=== PATIENT | female | born 1950 | race Caucasian/White ===

== ENCOUNTER → 2017-03-14 | Outpatient (CLI) | payer MEDICARE, MEDICAID, OTHER ==
--- NOTE | 2017-03-14 15:17 | MR ---
EXAMINATION: MRI pelvis without contrast HISTORY: Pain COMPARISON: CT pelvis dated 07/08/2009 TECHNIQUE: Multiplanar and multisequence images obtained through the pelvis without contrast. FINDINGS: There is no abnormal bone marrow signal. The hips appear symmetric bilaterally with grossl y preserved joint spaces. No joint effusion. No subchondral changes. The SI joints are symmetric. Mi ld degenerative disc disease noted within the lower lumbar spine. Increased T2 signal areas are note d within the upper gluteal regions within the subcutaneous tissues, likely unchanged from the prior CT. No abnormal intrapelvic findings. No free fluid. The urinary bladder is normal. IMPRESSION: 1. No acute findings demonstrated. 2. Mild to moderate degenerative changes noted within the lumbar spine.
== END ==
LOC: MW.MRI 11:30
PROVIDERS: ATTEND Family Medicine
DX: R10.30 Lower abdominal pain, unspecified (principal); M47.816 Spondylosis without myelopathy or radiculopathy, lumbar region
CPT/HCPCS: 72195; 72195-26

== ENCOUNTER 2019-03-10 18:34 | Emergency (ER) | payer MEDICARE, MEDICAID, OTHER ==
--- NOTE | 2019-03-10 18:58 | EDM.PDOC ---
ED HPI GENERAL MEDICAL PROBLEM - General Chief Complaint: Lower Extremity Injury/Pain Stated Complaint: FELL AND HIT KNEE Time Seen by Provider: 03/10/19 18:36 Source of Information: Reports: Patient History Limitations: Reports: No Limitations - History of Present Illness INITIAL COMMENTS - FREE TEXT/NARRATIVE: HISTORY AND PHYSICAL: History of present illness: Patient is a 68-year-old female presents to the ED today for left knee pain after she had fallen in the kitchen when she saw a snake, under her fridge. Patient states she landed directly on her left knee and did not hit her head or lose consciousness. Patient states since she had fallen earlier today, she has not been able to put weight on the leg due to pain. She states she has not been able to bend the knee due to pain. Patient denies any other symptoms at this time. Patient denies fever, chills, chest pain, shortness of breath, or cough. Denies headache, neck stiff ness, change in vision, syncope, or near syncope. Denies nausea, vomiting, abdominal pain, diarrhea, constipation, or dysuria. Has not noted any blood in urine or stool. Patient has been eating and drinking appropriately. Patient has a history of COPD and a prior stroke that has affected the left side of her body. Review of systems: As per history of present illness and below otherwise all systems reviewed and negative. Past medical history: As per history of present illness and as reviewed below otherwise noncontributory. Surgical history: As per history of present illness and as reviewed below otherwise noncontributory. Social history: See social history for further information Family history: As per history of present illness and as reviewed below otherwise noncontributory. Physical exam: General: Patient is alert, oriented, and in no acute distress. Patient sitting comfortably on exam table. HEENT: Atraumatic, normocephalic, pupils equal and reactive bilaterally, negative for conjunctival pallor or scleral icterus, mucous membranes moist, TMs normal bilaterally, throat clear, neck supple, nontender, trachea midline. No drooling or trismus noted. No meningeal signs. No hot potato voice noted. Slight drooping of left side of face per baseline. Lungs: Clear to auscultation, breath sounds equal bilaterally, chest nontender. Heart: S1S2, regular rate and rhythm without overt murmur Abdomen: Soft, nondistended, nontender. Negative for masses or hepatosplenomegaly. Negative for costovertebral tenderness. Pelvis: Stable nontender. Genitourinary: Deferred. Rectal: Deferred. Skin: Intact, warm, dry. No lesions or rashes noted. Extremities:Negative for cords or calf pain. Neurovascular unremarkable. Unable to assess range of motion of left knee and due to pain. Generalized pain to palpation of the left knee. No obvious deformities, step-offs, or crepitus to palpation of the knee. Dorsalis pedis and posterior tibial pulses are grossly intact bilaterally. Left side arm is spastic and patient unable to utilize this side (due to past stroke) Capillary refill less than 2 seconds. Neuro: Awake, alert, oriented. Cranial nerves II through XII unremarkable. Cerebellum unremarkable. Motor and sensory unremarkable throughout. Exam nonfocal. Notes: Dr. Carpio verbally involved in patient care. Patient's first troponin had come back positive, however, we are having issues with not having transportation available at this time. Patient remains asymptomatic, denying any symptoms other than left knee pain, and will continue to monitor patient. Patient does take a full dose aspirin daily and states she did take her dose not long before arrival to the ED. Second troponin has increased from 0.198 to 0.387 after 2 hours of draw times. Patient continues to remain chest pain free. Therefore, the availability to transfer via EMS is arranged. There remains issues with transportation options at this time, however, EMS has called and said they are working on rearranging for a team shortly. Will continue to monitor patient. Repeat EKG performed. Patient Voices understanding and is agreeable to plan of care. Denies any further questions or concerns at this time. Patient transferred via EMS to [facility] to Dr. Maritn. 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 Transfer to [facility] to Dr. Martin. Definitive disposition and diagnosis as appropriate pending reevaluation and review of above. left knee Pain Score (Numeric/FACES): 10 - Related Data Allergies Allergy/AdvReac Type Severity Reaction Status Date / Time amoxicillin trihydrate Allergy Anaphylactic Verified 09/18/15 08:57 [From Augmentin] Shock hydrocortisone Allergy Cannot Verified 09/18/15 08:57 [From Cortizone-10] Remember Penicillins Allergy Cannot Verified 09/18/15 08:57 Remember potassium clavulanate Allergy Anaphylactic Verified 09/18/15 08:57 [From Augmentin] Shock prochlorperazine edisylate Allergy Cannot Verified 09/18/15 08:57 [From Compazine] Remember prochlorperazine maleate Allergy Cannot Verified 09/18/15 08:57 [From Compazine] Remember sumatriptan [From Imitrex] Allergy Cannot Verified 09/18/15 08:57 Remember sumatriptan succinate Allergy Cannot Verified 09/18/15 08:57 [From Imitrex] Remember Home Meds: Home Meds Hydrocodone/Acetaminophen [Hydrocodone-Acetaminophen 5-325] 1 each PO ASDIRECTED PRN 02/20/14 [History] Acetaminophen [Tylenol Extra Strength] 2 tab PO ASDIRECTED PRN 01/01/15 [History ] Aspirin [Ecotrin] 325 mg PO DAILY 11/06/15 [History] Citalopram [Celexa] 20 mg PO DAILY 11/06/15 [History] Divalproex Sodium [Divalproex Sodium ER] 500 mg PO BEDTIME 11/06/15 [History] Docusate Sodium [Colace] 100 mg PO BID PRN 11/06/15 [History] Pantoprazole [ProTONIX] 40 mg PO ACBREAKFAST 11/06/15 [History] Tiotropium [Spiriva HandiHaler] 18 mcg INH DAILY 11/06/15 [History] atorvaSTATin [Lipitor] 80 mg PO DAILY 11/06/15 [History] traMADol [Ultram] 50 mg PO Q8H PRN 11/06/15 [History] Furosemide [Lasix] 40 mg PO 03/10/19 [History] Linaclotide [Linzess] 125 mcg PO 03/10/19 [History] Vitamin B Complex 03/10/19 [History] Zolpidem [Ambien] 5 mg PO BEDTIME PRN 03/10/19 [History] traZODone HCl [Trazodone HCl] 50 mg PO ASDIRECTED 03/10/19 [History] Past Medical History HEENT History: Reports: Impaired Vision Other HEENT History: wears glasses, poor vision in left side since stroke. : APPEARS TO HAVE DIMINISHED PERIPHERAL VISION ON THE LEFT. HOWEVER, PATIENT AND SPOUSE BOTH REPORT THIS IS MUCH IMPROVED FROM THE INITIAL ONE SET DATE. 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 Neurological History: Reports: CVA Other Neuro History: left sided stroke one month ago. 11/19/15: MIGRAINE HEADACHES. Psychiatric History: Reports: Depression Endocrine/Metabolic History: Reports: None Hematologic History: Reports: None Oncologic (Cancer) History: Reports: None Dermatologic History: Reports: None - Infectious Disease History Infectious Disease History: Reports: Chicken Pox - Past Surgical History GI Surgical History: Reports: Appendectomy Female Surgical History: Reports: Hysterectomy Musculoskeletal Surgical History: Reports: Carpal Tunnel Social & Family History - Family History Family Medical History: Noncontributory Cardiac: Reports: Hypertension, MA Respiratory: Reports: COPD Musculoskeletal: Reports: Arthritis Neurological: Reports: CVA, TIA Endocrine/Metabolic: Reports: Diabetes, Type I Oncologic: Reports: Lung - Tobacco Use Smoking Status *Q: Never Smoker - Recreational Drug Use Recreational Drug Use: No Review of Systems - Review of Systems Review Of Systems: ROS reveals no pertinent complaints other than HPI. ED EXAM, GENERAL - Physical Exam Exam: See Below (See dictation) Course - Vital Signs Last Recorded V/S: Last Vital Signs Temp 36.7 C 03/10/19 18:38 Pulse 82 03/10/19 21:26 Resp 18 03/10/19 21:26 BP 125/52 L 03/10/19 21:26 Pulse Ox 95 03/10/19 21:26 - Orders/Labs/Meds Orders: Active Orders 24 hr Category Date Time Status Cardiac Monitoring [RC] . DIRECTED Care 03/10/19 19:40 Active EKG Documentation Completion [RC] STAT Care 03/10/19 18:46 Active RT Aerosol Therapy [RC] ASDIRECTED Care 03/10/19 19:01 Active UA RFX HENOK AND CULT IF INDIC [URIN] Stat Lab 03/10/19 18:46 Ordered Sodium Chloride 0.9% [Saline Flush] Med 03/10/19 19:38 Active 10 ml FLUSH ASDIRECTED PRN Sodium Chloride 0.9% [Saline Flush] Med 03/10/19 19:38 Active 2.5 ml FLUSH ASDIRECTED PRN Saline Lock Insert [OM.PC] Stat Oth 03/10/19 19:38 Ordered Medication Orders Sodium Chloride (Saline Flush) 10 ml FLUSH ASDIRECTED PRN PRN Reason: Keep Vein Open Last Admin: 03/10/19 20:37 Dose: 10 ml Sodium Chloride (Saline Flush) 2.5 ml FLUSH ASDIRECTED PRN PRN Reason: Keep Vein Open Last Admin: 03/10/19 20:37 Dose: 2.5 ml Labs: Laboratory Tests 03/10/19 03/10/19 03/10/19 Range/Units 18:53 18:53 18:53 WBC 12.18 H (4.0-11.0) K/uL RBC 4.59 (4.30-5.90) M/uL Hgb 13.9 (12.0-16.0) g/dL Hct 42.2 (36.0-46.0) % MCV 91.9 (80.0-98.0) fL MCH 30.3 (27.0-32.0) pg MCHC 32.9 (31.0-37.0) g/dL RDW Std Deviation 53.1 (28.0-62.0) fl RDW Coeff of Nagi 16 H (11.0-15.0) % Plt Count 221 (150-400) K/uL MPV 11.60 (7.40-12.00) fL Neut % (Auto) 74.0 (48.0-80.0) % Lymph % (Auto) 19.3 (16.0-40.0) % [place] % (Auto) 5.7 (0.0-15.0) % Eos % (Auto) 0.8 (0.0-7.0) % Baso % (Auto) 0.2 (0.0-1.5) % Neut # (Auto) 9.0 H (1.4-5.7) K/uL Lymph # (Auto) 2.4 (0.6-2.4) K/uL [place] # (Auto) 0.7 (0.0-0.8) K/uL Eos # (Auto) 0.1 (0.0-0.7) K/uL Baso # (Auto) 0.0 (0.0-0.1) K/uL Nucleated RBC % 0.0 /100WBC Nucleated RBCs # 0 K/uL Sodium 142 (136-145) mmol/L Potassium 4.0 (3.5-5.1) mmol/L Chloride 103 (98-107) mmol/L Carbon Dioxide 29.6 (21.0-32.0) mmol/L BUN 15 (7.0-18.0) mg/dL Creatinine 0.9 (0.6-1.0) mg/dL Est Cr Clr Drug Dosing 45.77 mL/min Estimated GFR (MDRD) > 60.0 ml/min Glucose 108 H (74-106) mg/dL Calcium 9.1 (8.5-10.1) mg/dL Total Bilirubin 0.4 (0.2-1.0) mg/dL AST 22 (15-37) IU/L ALT 23 (14-63) IU/L Alkaline Phosphatase 138 H (46-116) U/L Creatine Kinase 168 (26-308) U/L Troponin I 0.198 H* (0.000-0.056) ng/mL Total Protein 7.5 (6.4-8.2) g/dL Albumin 3.9 (3.4-5.0) g/dL Globulin 3.6 (2.6-4.0) g/dL Albumin/Globulin Ratio 1.1 (0.9-1.6) 03/10/19 Range/Units 20:56 WBC (4.0-11.0) K/uL RBC (4.30-5.90) M/uL Hgb (12.0-16.0) g/dL Hct (36.0-46.0) % MCV (80.0-98.0) fL MCH (27.0-32.0) pg MCHC (31.0-37.0) g/dL RDW Std Deviation (28.0-62.0) fl RDW Coeff of Nagi (11.0-15.0) % Plt Count (150-400) K/uL MPV (7.40-12.00) fL Neut % (Auto) (48.0-80.0) % Lymph % (Auto) (16.0-40.0) % [place] % (Auto) (0.0-15.0) % Eos % (Auto) (0.0-7.0) % Baso % (Auto) (0.0-1.5) % Neut # (Auto) (1.4-5.7) K/uL Lymph # (Auto) (0.6-2.4) K/uL [place] # (Auto) (0.0-0.8) K/uL Eos # (Auto) (0.0-0.7) K/uL Baso # (Auto) (0.0-0.1) K/uL Nucleated RBC % /100WBC Nucleated RBCs # K/uL Sodium (136-145) mmol/L Potassium (3.5-5.1) mmol/L Chloride (98-107) mmol/L Carbon Dioxide (21.0-32.0) mmol/L BUN (7.0-18.0) mg/dL Creatinine (0.6-1.0) mg/dL Est Cr Clr Drug Dosing mL/min Estimated GFR (MDRD) ml/min Glucose (74-106) mg/dL Calcium (8.5-10.1) mg/dL Total Bilirubin (0.2-1.0) mg/dL AST (15-37) IU/L ALT (14-63) IU/L Alkaline Phosphatase (46-116) U/L Creatine Kinase (26-308) U/L Troponin I 0.387 H* (0.000-0.056) ng/mL Total Protein (6.4-8.2) g/dL Albumin (3.4-5.0) g/dL Globulin (2.6-4.0) g/dL Albumin/Globulin Ratio (0.9-1.6) Meds: Medications Generic Name Dose Route Start Last Admin Trade Name Freq PRN Reason Stop Dose Admin Sodium Chloride 10 ml 03/10/19 19:38 03/10/19 20:37 Saline Flush FLUSH 10 ml ASDIRECTED PRN Administration Keep Vein Open Sodium Chloride 2.5 ml 03/10/19 19:38 03/10/19 20:37 Saline Flush FLUSH 2.5 ml ASDIRECTED PRN Administration Keep Vein Open Discontinued Medications Generic Name Dose Route Start Last Admin Trade Name Freq PRN Reason Stop Dose Admin Albuterol/Ipratropium 3 ml 03/10/19 19:01 03/10/19 19:11 Duoneb 3.0-0.5 Mg/3 Ml NEB 03/10/19 19:02 3 ml ONETIME ONE Administration Morphine Sulfate 2 mg 03/10/19 20:25 03/10/19 20:37 Morphine IVPUSH 03/10/19 20:26 2 mg ONETIME ONE Administration Nitroglycerin 0.5 gm 03/10/19 21:45 Nitro-Bid 2% TOP 03/10/19 21:46 ONETIME ONE Departure - Departure Time of Disposition: 21:58 Disposition: DC/Tfer to Acute Hospital 02 Condition: Fair Clinical Impression: NSTEMI (non-ST elevated myocardial infarction) Knee injury Qualifiers: Encounter type: initial encounter Laterality: left Qualified Code(s): S89.92XA - Unspecified injury of left lower leg, initial encounter - Discharge Information Referrals: Jenny Summers DO [Primary Care Provider] - - My Orders Last 24 Hours: My Active Orders 03/10/19 18:46 EKG Documentation Completion [RC] STAT UA RFX HENOK AND CULT IF INDIC [URIN] Stat 03/10/19 19:01 RT Aerosol Therapy [RC] ASDIRECTED 03/10/19 19:38 Sodium Chloride 0.9% [Saline Flush] 10 ml FLUSH ASDIRECTED PRN Sodium Chloride 0.9% [Saline Flush] 2.5 ml FLUSH ASDIRECTED PRN Saline Lock Insert [OM.PC] Stat 03/10/19 19:40 Cardiac Monitoring [RC] . DIRECTED - Assessment/Plan Last 24 Hours: My Active Orders 03/10/19 18:46 EKG Documentation Completion [RC] STAT UA RFX HENOK AND CULT IF INDIC [URIN] Stat 03/10/19 19:01 RT Aerosol Therapy [RC] ASDIRECTED 03/10/19 19:38 Sodium Chloride 0.9% [Saline Flush] 10 ml FLUSH ASDIRECTED PRN Sodium Chloride 0.9% [Saline Flush] 2.5 ml FLUSH ASDIRECTED PRN Saline Lock Insert [OM.PC] Stat 03/10/19 19:40 Cardiac Monitoring [RC] . DIRECTED
[2019-03-10] MEDS ORDERED: Albuterol/Ipratropium 3.0-0.5 MG/3 ML Neb Soln NEB ONE (19:01)
[2019-03-10 19:25] LABS: CHLORIDE,CL 103 mmol/L (98-107); SODIUM,NA 142 mmol/L (136-145)
[2019-03-10] MEDS ORDERED: Sodium Chloride 0.9% 2.5 ML Syringe FLUSH PRN (19:38)
[2019-03-10] MEDS ORDERED: Sodium Chloride 0.9% 10 ML Syringe FLUSH PRN (19:38)
[2019-03-10] MEDS ORDERED: Morphine 2 MG/ML Syringe IVPUSH ONE ×2 (20:25→23:28)
--- NOTE | 2019-03-10 20:28 | CR ---
INDICATION: Hypoxia. COMPARISON: 11/06/2015 FINDINGS: An erect single view of the chest was obtained at 1931 hours. The lungs remain clear despite shallow inspiration. No focal or diffuse infiltrates are present. There is new mild cardiomegaly. This is partially the result of shallow inspiration. The mediastinum is otherwise normal in appearance. Again seen is a metallic plate from anterior cervical fusion. IMPRESSION: Shallow inspiration, but the chest appears to be clear. New mild cardiomegaly, partially the result of shallow inspiration. Dictated by Antonio Castillo MD @ Mar 10 2019 8:25PM Signed by Dr. Antonio Castillo @ Mar 10 2019 8:27PM
--- NOTE | 2019-03-10 20:28 | CR ---
Indication: Fall Technique: Three views of the left knee Comparison: None available Findings/Impression: Bones: Alignment is normal. No fractures or bone lesions. Joint spaces: Preserved. A small suprapatellar effusion. Soft tissues: Unremarkable. Dictated by Massimo Greer MD @ 03/10/2019 8:24:23 PM Dictated by: Massimo Greer MD @ 03/10/2019 20:26:23 (Electronically Signed)
--- NOTE | 2019-03-10 20:47 | CT ---
INDICATION: Fall. Prior stroke. TECHNIQUE: Noncontrast CT of the brain was performed with images acquired from skull base to vertex. COMPARISON: 09/18/2015. FINDINGS: Right frontal temporal encephalomalacia related to prior right middle cerebral artery territory infarct. There is no acute intracranial hemorrhage. There is ex vacuo dilatation on the right lateral ventricle. Ventricles are otherwise normal size and morphology. No mass effect or midline shift is present. The left hemispheric curtis-white matter differentiation is normal. The visualized portions of the orbits are normal. The visualized portions of the mastoids are normal. The visualized portions of the paranasal sinuses are normal. No fractures are identified. There is atherosclerotic calcification of the carotid siphons. IMPRESSION: No acute intracranial abnormality. Please note that all CT scans at this facility use dose modulation, iterative reconstruction, and/or weight-based dosing when appropriate to reduce radiation dose to as low as reasonably achievable. Dictated by Charles Kc MD @ Mar 10 2019 10:51PM Signed by Dr. Charles Kc @ Mar 10 2019 10:55PM
[2019-03-10] MEDS ORDERED: Nitroglycerin 2% Oint 1 GM UD Packet TOP ONE (21:45)
[2019-03-10] MEDS ORDERED: Morphine 2 MG/ML Syringe ONE (23:29)
[2019-03-10 23:41] VITALS: BP 129/74
== END 2019-03-10 23:41 ==
LOC: MW.ED 18:34
DX: I21.4 Non-ST elevation (NSTEMI) myocardial infarction (principal); S89.92XA Unspecified injury of left lower leg, initial encounter; I69.334 Monoplegia of upper limb following cerebral infarction affecting left non-dominant side; Z90.49 Acquired absence of other specified parts of digestive tract; Z90.710 Acquired absence of both cervix and uterus; Z88.0 Allergy status to penicillin; Z88.1 Allergy status to other antibiotic agents; Z79.82 Long term (current) use of aspirin; Z79.899 Other long term (current) drug therapy; W19.XXXA Unspecified fall, initial encounter
CPT/HCPCS: 36415; 70450; 71045; 73562; 80053; 81003; 82550; 84484; 85025; 93005; 94640; 96374; 96376; 99285; A9270; J2270; J7620-GY

== ENCOUNTER 2020-08-14 13:00 | Emergency (ER) | payer MEDICARE, MEDICAID, OTHER ==
--- NOTE | 2020-08-14 15:37 | EDM.PDOC ---
ED HPI GENERAL MEDICAL PROBLEM - General Chief Complaint: Upper Extremity Injury/Pain Stated Complaint: Elbow pain Time Seen by Provider: 08/14/20 13:00 Source of Information: Reports: Patient (13) History Limitations: Reports: No Limitations - History of Present Illness INITIAL COMMENTS - FREE TEXT/NARRATIVE: HISTORY AND PHYSICAL: History of present illness: Patient is a 70-year-old female who presents to the emergency room with complaints of left elbow pain. She has a history of stroke with left-sided weakness. States yesterday she was getting out of her wheelchair when she fell from standing height onto her back/left side. She denies hitting her head or having any loss of consciousness. She was able to get up and get ready for bed as previously planned. When she woke up this morning she had increased pain with touch and movement of the left elbow. She denies being on any blood thinners/anticoagulants or aspirins. Denies any other bodily injury or pain. Offers no systemic complaints. Review of systems: As per history of present illness and below otherwise all systems reviewed and negative. Past medical history: As per history of present illness and as reviewed below otherwise noncontributory. Surgical history: As per history of present illness and as reviewed below otherwise noncontributory. Social history: See social history for further information Family history: As per history of present illness and as reviewed below otherwise noncontributory. Physical exam: General: Well developed and well nourished. Alert and orientated x 3. Nontoxic in appearance and in no acute distress. Vital signs are stable and have been reviewed by me. Nursing notes were reviewed. HEENT: Atraumatic, normocephalic, pupils equal and reactive bilaterally, negative for conjunctival pallor or scleral icterus, mucous membranes moist, TMs normal bilaterally, throat clear, neck supple, nontender, trachea midline. No drooling or trismus noted. No meningeal signs. No hot potato voice noted. Lungs: Clear to auscultation, breath sounds equal bilaterally, chest nontender. Normal work of breathing, no accessory muscles used. Heart: S1S2, regular rate and rhythm without overt murmur Abdomen: Soft, nondistended, nontender. Negative for masses or hepatosplenomegaly. Negative for costovertebral tenderness. Pelvis: Stable nontender. C-spine/Back: No pinpoint vertebral tenderness upon palpation. No crepitus, step-offs or obvious deformities. Patient is ambulatory into the emergency room without difficulty or deficit. Able to rock back on heels and walk on toes. Denies any urinary or fecal incontinence. Denies any numbness, tingling or saddle paresthesia. No concerns of serious infection, fracture or cord compression, or cauda equina syndrome. Deep tendon reflexes brisk bilaterally. Skin: Intact, warm, dry. No lesions or rashes noted. Hematologic: No petechiae or purpra. Mucosa appropriate color and normal nail bed color and refill. Extremities: Atraumatic, moves all extremities per self without difficulty or deficits, negative for cords or calf pain. Neurovascular unremarkable. Neuro: Awake, alert, oriented. Cranial nerves II through XII unremarkable. Cerebellum unremarkable. Motor and sensory unremarkable throughout. Exam nonfocal. Psychiatric: Mood and affect are appropriate. Normal thought process. Answering questions appropriately. Notes: Head to toe assessment was within normal limits with the exception of tenderness to the left elbow. She denies hitting her head or having any loss of consciousness and is adamant that she does not need any other imaging other than the left upper extremity. X-ray shows no acute bony abnormality. Lidoderm patch applied to the painful area. Will give sling for comfort, patient is to wear until she follows up with the orthopedic provider. I have spoken with the patient/caregiver and discussed today's findings, in addition to providing specific details for plan of care. Reassessment at the time of disposition demonstrates that the patient is in no acute distress. The patient has remained stable throughout the entire ED visit and is without objective evidence for acute process requiring urgent intervention or hospitalization. The patient is stable for discharge, counseling was provided and we discussed in great detail signs and symptoms that would prompt them to return to the Emergency Department. Medication, follow up and supportive care measures were reviewed and discussed. Voices understanding and is agreeable to plan of care. Denies any further questions or concerns at this time. Diagnostics: Elbow x-ray Therapeutics: Sling, Lidoderm Prescription: None Impression: Fall Left elbow contusion Plan: 1. Rest, ice, elevate the affected extremity. Please wear the sling as directed. 2. Tylenol and/or Ibuprofen as needed for pain management. 3. Follow up with the Orthopedic provider as we discussed. Return to the ED as needed and as discussed. Definitive disposition and diagnosis as appropriate pending reevaluation and review of above. - Related Data Allergies Allergy/AdvReac Type Severity Reaction Status Date / Time amoxicillin trihydrate Allergy Anaphylactic Verified 08/14/20 15:53 [From Augmentin] Shock hydrocortisone Allergy Cannot Verified 08/14/20 15:53 [From Cortizone-10] Remember Penicillins Allergy Cannot Verified 08/14/20 15:53 Remember potassium clavulanate Allergy Anaphylactic Verified 08/14/20 15:53 [From Augmentin] Shock prochlorperazine edisylate Allergy Cannot Verified 08/14/20 15:53 [From Compazine] Remember prochlorperazine maleate Allergy Cannot Verified 08/14/20 15:53 [From Compazine] Remember sumatriptan [From Imitrex] Allergy Cannot Verified 08/14/20 15:53 Remember sumatriptan succinate Allergy Cannot Verified 08/14/20 15:53 [From Imitrex] Remember Home Meds: Home Meds Hydrocodone/Acetaminophen [Hydrocodone-Acetaminophen 5-325] 1 each PO ASDIRECTED PRN 02/20/14 [History] Acetaminophen [Tylenol Extra Strength] 2 tab PO ASDIRECTED PRN 01/01/15 [History] Aspirin [Ecotrin] 325 mg PO DAILY 11/06/15 [History] Citalopram [Celexa] 20 mg PO DAILY 11/06/15 [History] Divalproex Sodium [Divalproex Sodium ER] 500 mg PO BEDTIME 11/06/15 [History] Docusate Sodium [Colace] 100 mg PO BID PRN 11/06/15 [History] Pantoprazole [ProTONIX] 40 mg PO ACBREAKFAST 11/06/15 [History] Tiotropium [Spiriva HandiHaler] 18 mcg INH DAILY 11/06/15 [History] atorvaSTATin [Lipitor] 80 mg PO DAILY 11/06/15 [History] traMADol [Ultram] 50 mg PO Q8H PRN 11/06/15 [History] Furosemide [Lasix] 40 mg PO 03/10/19 [History] Linaclotide [Linzess] 125 mcg PO 03/10/19 [History] Vitamin B Complex 03/10/19 [History] Zolpidem [Ambien] 5 mg PO BEDTIME PRN 03/10/19 [History] traZODone HCl [Trazodone HCl] 50 mg PO ASDIRECTED 03/10/19 [History] Past Medical History HEENT History: Reports: Impaired Vision Other HEENT History: wears glasses, poor vision in left side since stroke. 11/19/15: APPEARS TO HAVE DIMINISHED PERIPHERAL VISION ON THE LEFT. HOWEVER, PATIENT AND SPOUSE BOTH REPORT THIS IS MUCH IMPROVED FROM THE INITIAL ONE SET DATE. 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 Neurological History: Reports: CVA Other Neuro History: left sided stroke one month ago. 11/19/15: MIGRAINE HEADACHES. Psychiatric History: Reports: Depression Endocrine/Metabolic History: Reports: None Hematologic History: Reports: None Oncologic (Cancer) History: Reports: None Dermatologic History: Reports: None - Infectious Disease History Infectious Disease History: Reports: Chicken Pox - Past Surgical History GI Surgical History: Reports: Appendectomy Female Surgical History: Reports: Hysterectomy Musculoskeletal Surgical History: Reports: Carpal Tunnel Social & Family History - Family History Family Medical History: Noncontributory Cardiac: Reports: Hypertension, [place] Respiratory: Reports: COPD Musculoskeletal: Reports: Arthritis Neurological: Reports: CVA, TIA Endocrine/Metabolic: Reports: Diabetes, Type I Oncologic: Reports: Lung Review of Systems - Review of Systems Review Of Systems: Comprehensive ROS is negative, except as noted in HPI. ED EXAM, GENERAL - Physical Exam Exam: See Below (See dictation) Course - Orders/Labs/Meds Orders: Active Orders 24 hr Category Date Time Status Lidocaine 5% [Lidoderm 5%] Med 08/14/20 15:55 Once 700 mg TOP ONETIME ONE Departure - Departure Time of Disposition: 15:57 Disposition: Home, Self-Care 01 Clinical Impression: Fall Qualifiers: Encounter type: initial encounter Qualified Code(s): W19.XXXA - Unspecified fall, initial encounter Left elbow contusion Qualifiers: Encounter type: initial encounter Qualified Code(s): S50.02XA - Contusion of left elbow, initial encounter - Discharge Information Instructions: Elbow Contusion Forms: ED Department Discharge, ED Return to Work/School Form Additional Instructions: The following information is given to patients seen in the emergency department who are being discharged to home. This information is to outline your options for follow-up care. We provide all patients seen in our emergency department with a follow-up referral. The need for follow-up, as well as the timing and circumstances, are variable depending upon the specifics of your emergency department visit. If you don't have a primary care physician on staff, we will provide you with a referral. We always advise you to contact your personal physician following an emergency department visit to inform them of the circumstance of the visit and for follow-up with them and/or the need for any referrals to a consulting specialist. The emergency department will also refer you to a specialist when appropriate. This referral assures that you have the opportunity for follow-up care with a specialist. All of these measure are taken in an effort to provide you with optimal care, which includes your follow-up. Under all circumstances we always encourage you to contact your private hysician who remains a resource for coordinating your care. When calling for follow-up care, please make the office aware that this follow-up is from your recent emergency room visit. If for any reason you are refused follow-up, please contact the Emergency Department at and asked to speak to the emergency department charge nurse. Primary Care [address] [place] [address] [place] [address] Thank you for choosing the [facility] emergency department in [place] for your medical needs today. It was a pleasure caring for you. Today you were seen in the emergency department for fall resulting in left elbow injury. 1. Rest, ice, elevate the affected extremity. Please wear the sling as directed. 2. Tylenol and/or Ibuprofen as needed for pain management. 3. Follow up with the Orthopedic provider as we discussed. Return to the ED as needed and as discussed. - My Orders Last 24 Hours: My Active Orders 08/14/20 15:55 Lidocaine 5% [Lidoderm 5%] 700 mg TOP ONETIME ONE - Assessment/Plan Last 24 Hours: My Active Orders 08/14/20 15:55 Lidocaine 5% [Lidoderm 5%] 700 mg TOP ONETIME ONE
--- NOTE | 2020-08-14 15:47 | CR ---
INDICATION: Fall. Left elbow pain. FINDINGS: Three views of the left elbow were obtained. There is no acute fracture seen or dislocation. IMPRESSION: No acute bone abnormality. Dictated by Luis Enrique Jerome MD @ Aug 14 2020 3:45PM Signed by Dr. Luis Enrique Jerome @ Aug 14 2020 3:46PM
[2020-08-14] MEDS ORDERED: Lidocaine 5% 700 MG Patch TOP ONE (15:55)
[2020-08-14 16:02] VITALS: BP 148/86; PULSE 69
== END 2020-08-14 16:42 | disposition home or self-care (01) ==
LOC: MW.ED 15:26
DX: S50.02XA Contusion of left elbow, initial encounter (principal); J44.9 Chronic obstructive pulmonary disease, unspecified; F32.9 Major depressive disorder, single episode, unspecified; Z88.1 Allergy status to other antibiotic agents; Z88.0 Allergy status to penicillin; Z88.8 Allergy status to other drugs, medicaments and biological substances; Z79.82 Long term (current) use of aspirin; Z79.899 Other long term (current) drug therapy; Z86.73 Personal history of transient ischemic attack (TIA), and cerebral infarction without residual deficits; Z90.49 Acquired absence of other specified parts of digestive tract; Z90.710 Acquired absence of both cervix and uterus; W05.0XXA Fall from non-moving wheelchair, initial encounter
CPT/HCPCS: 73080; 99283; A9270

== ENCOUNTER 2021-10-19 16:08 | Emergency (ER) | payer MEDICARE, OTHER, MEDICAID ==
--- NOTE | 2021-10-19 16:23 | EDM.PDOC ---
ED HPI GENERAL MEDICAL PROBLEM - General Chief Complaint: Trauma Stated Complaint: PT FELL / PAIN IN LEG/HIP AREA Time Seen by Provider: 10/19/21 16:13 Source of Information: Reports: Patient, EMS History Limitations: Reports: No Limitations - History of Present Illness INITIAL COMMENTS - FREE TEXT/NARRATIVE: 71-year-old female past medical history CVA with residual left-sided deficit, CAD status post NSTEMI, hypertension presents for fall injury. Patient was using the restroom when she fell trying to stand up. She had the back of her head but denies LOC. She felt a popping sensation in her right hip and was unable to get up on her own. She estimates that she was on the ground for around 1 hour prior to her coming back from the grocery store and calling EMS. She denies any neck pain, loss of consciousness She was initially complaining of 10 out of 10 pain to EMS and was given 1 mg of Dilaudid. Her pain did not improve so she was given an additional 50 mcg of fentanyl prior to arrival and notes that pain has improved since. She was noted to have low O2 sats in the mid 80s and was put on 2 L nasal cannula prior to arrival. Patient does not wear oxygen at home. right hip Pain Score (Numeric/FACES): 8 - Related Data Allergies Allergy/AdvReac Type Severity Reaction Status Date / Time amoxicillin trihydrate Allergy Anaphylactic Verified 10/19/21 16:23 [From Augmentin] Shock hydrocortisone Allergy Cannot Verified 10/19/21 16:23 [From Cortizone-10] Remember Penicillins Allergy Cannot Verified 10/19/21 16:23 Remember potassium clavulanate Allergy Anaphylactic Verified 10/19/21 16:23 [From Augmentin] Shock prochlorperazine edisylate Allergy Cannot Verified 10/19/21 16:23 [From Compazine] Remember prochlorperazine maleate Allergy Cannot Verified 10/19/21 16:23 [From Compazine] Remember sumatriptan [From Imitrex] Allergy Cannot Verified 10/19/21 16:23 Remember sumatriptan succinate Allergy Cannot Verified 10/19/21 16:23 [From Imitrex] Remember Home Meds: Home Meds Hydrocodone/Acetaminophen [Hydrocodone-Acetaminophen 5-325] 1 each PO ASDIRECTED PRN 02/20/14 [History] Acetaminophen [Tylenol Extra Strength] 2 tab PO ASDIRECTED PRN 01/01/15 [History] Aspirin [Ecotrin] 325 mg PO DAILY 11/06/15 [History] Citalopram [Celexa] 20 mg PO DAILY 11/06/15 [History] Divalproex Sodium [Divalproex Sodium ER] 500 mg PO BEDTIME 11/06/15 [History] Docusate Sodium [Colace] 100 mg PO BID PRN 11/06/15 [History] Pantoprazole [ProTONIX] 40 mg PO ACBREAKFAST 11/06/15 [History] Tiotropium [Spiriva HandiHaler] 18 mcg INH DAILY 11/06/15 [History] atorvaSTATin [Lipitor] 80 mg PO DAILY 11/06/15 [History] traMADol [Ultram] 50 mg PO Q8H PRN 11/06/15 [History] Furosemide [Lasix] 40 mg PO 03/10/19 [History] Linaclotide [Linzess] 125 mcg PO 03/10/19 [History] Vitamin B Complex 03/10/19 [History] Zolpidem [Ambien] 5 mg PO BEDTIME PRN 03/10/19 [History] traZODone HCl [Trazodone HCl] 50 mg PO ASDIRECTED 03/10/19 [History] Past Medical History HEENT History: Reports: Impaired Vision Other HEENT History: wears glasses, poor vision in left side since stroke. 11/19/15: APPEARS TO HAVE DIMINISHED PERIPHERAL VISION ON THE LEFT. HOWEVER, PATIENT AND SPOUSE BOTH REPORT THIS IS MUCH IMPROVED FROM THE INITIAL ONE SET DATE. 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 Neurological History: Reports: CVA Other Neuro History: left sided stroke one month ago. 11/19/15: MIGRAINE HEADACHES. Psychiatric History: Reports: Depression Endocrine/Metabolic History: Reports: None Hematologic History: Reports: None Oncologic (Cancer) History: Reports: None Dermatologic History: Reports: None - Infectious Disease History Infectious Disease History: Reports: Chicken Pox - Past Surgical History GI Surgical History: Reports: Appendectomy Female Surgical History: Reports: Hysterectomy Musculoskeletal Surgical History: Reports: Carpal Tunnel Social & Family History - Family History Family Medical History: No Pertinent Family History Cardiac: Reports: Hypertension, [place] Respiratory: Reports: COPD Musculoskeletal: Reports: Arthritis Neurological: Reports: CVA, TIA Endocrine/Metabolic: Reports: Diabetes, Type I Oncologic: Reports: Lung - Caffeine Use Caffeine Use: Reports: None Review of Systems - Review of Systems Review Of Systems: Comprehensive ROS is negative, except as noted in HPI. ED EXAM, GENERAL - Physical Exam Exam: See Below Exam Limited By: No Limitations General Appearance: Alert, WD/WN, No Apparent Distress Eye Exam: Bilateral Eye: EOMI, PERRL Ears: Hearing Grossly Normal Throat/Mouth: Normal Voice, No Airway Compromise Head: Atraumatic, Normocephalic Neck: Normal Inspection, Supple, Non-Tender. No: Tender Midline Respiratory/Chest: No Respiratory Distress, Lungs Clear, Normal Breath Sounds, No Accessory Muscle Use Cardiovascular: Normal Peripheral Pulses, Regular Rate, Rhythm GI/Abdominal: Soft, Non-Tender Back Exam: Normal Inspection. No: Vertebral Tenderness Extremities: Other (No overt deformities or tenderness to palpation of bilateral upper extremities, positive tenderness to palpation of right pelvis/hip without pelvic instability, leg length is symmetric, no axial loading tenderness to palpation bilaterally) Neurological: Alert, Normal Cognition, No Motor/Sensory Deficits Psychiatric: Normal Affect, Normal Mood Skin Exam: Warm, Dry, Intact, Normal Color Course - Vital Signs Last Recorded V/S: Last Vital Signs Temp 96.3 F L 10/19/21 16:10 Pulse 71 10/19/21 18:00 Resp 20 10/19/21 18:00 BP 144/61 H 10/19/21 18:00 Pulse Ox 92 L 10/19/21 18:01 - Orders/Labs/Meds Orders: Active Orders 24 hr Category Date Time Status Saline Lock Insert [OM.PC] Stat Oth 10/19/21 16:15 Ordered Labs: Laboratory Tests 10/19/21 10/19/21 10/19/21 Range/Units 16:12 16:12 16:12 WBC 9.72 (4.0-11.0) K/uL RBC 4.72 (4.30-5.90) M/uL Hgb 13.7 (12.0-16.0) g/dL Hct 41.1 (36.0-46.0) % MCV 87.1 (80.0-98.0) fL MCH 29.0 (27.0-32.0) pg MCHC 33.3 (31.0-37.0) g/dL RDW Std Deviation 53.8 (28.0-62.0) fl RDW Coeff of Nagi 17 H (11.0-15.0) % Plt Count 197 (150-400) K/uL MPV 11.30 (7.40-12.00) fL Neut % (Auto) 75.7 (48.0-80.0) % Lymph % (Auto) 17.6 (16.0-40.0) % [place] % (Auto) 5.5 (0.0-15.0) % Eos % (Auto) 0.9 (0.0-7.0) % Baso % (Auto) 0.3 (0.0-1.5) % Neut # (Auto) 7.4 H (1.4-5.7) K/uL Lymph # (Auto) 1.7 (0.6-2.4) K/uL [place] # (Auto) 0.5 (0.0-0.8) K/uL Eos # (Auto) 0.1 (0.0-0.7) K/uL Baso # (Auto) 0.0 (0.0-0.1) K/uL Nucleated RBC % 0.0 /100WBC Nucleated RBCs # 0 K/uL INR 1.00 APTT 25.4 (18.6-31.3) SEC Sodium 141 (136-145) mmol/L Potassium 3.7 (3.5-5.1) mmol/L Chloride 99 (98-107) mmol/L Carbon Dioxide 36.3 H (21.0-32.0) mmol/L BUN 7 (7.0-18.0) mg/dL Creatinine 0.6 (0.6-1.0) mg/dL Est Cr Clr Drug Dosing 62.67 mL/min Estimated GFR (MDRD) > 60.0 ml/min Glucose 107 H (74-106) mg/dL Calcium 8.5 (8.5-10.1) mg/dL Total Bilirubin 0.5 (0.2-1.0) mg/dL AST 64 H (15-37) IU/L ALT 63 (14-63) IU/L Alkaline Phosphatase 182 H (46-116) U/L Creatine Kinase 45 (26-308) U/L Total Protein 7.2 (6.4-8.2) g/dL Albumin 3.3 L (3.4-5.0) g/dL Globulin 3.9 (2.6-4.0) g/dL Albumin/Globulin Ratio 0.9 (0.9-1.6) - Re-Assessments/Exams Free Text/Narrative Re-Assessment/Exam: 10/19/21 16:23 We will get basic labs including total CPK. We will get chest x-ray, right hip and pelvis x-ray. Will get CT imaging of the head, cervical spine, pelvis to rule out fracture. 10/19/21 18:08 Patient is ambulatory and notes that her pain is much improved. Patient does struggle with ambulation, discussed with patient and need to follow-up with primary care physician for potential physical therapy or more advanced wa lking aids. They understand. 10/19/21 18:17 Labs unremarkable Departure - Departure Time of Disposition: 18:17 Disposition: Home, Self-Care 01 Condition: Good Clinical Impression: Fall Qualifiers: Encounter type: initial encounter Qualified Code(s): W19.XXXA - Unspecified fall, initial encounter - Discharge Information Instructions: Fall Prevention in the Home, Adult, [id number] Referrals: Jenny Summers DO [Primary Care Provider] - Forms: ED Department Discharge Additional Instructions: Your imaging does not reveal any evidence of fracture. Your labs are unremarkable. I really like you to discuss with your primary care physician ways to help prevent falls in the home. I know that you struggle with a walker but it may give you more stability than just a cane. The following information is given to patients seen in the emergency department who are being discharged to home. This information is to outline your options for follow-up care. We provide all patients seen in our emergency department with a follow-up referral. The need for follow-up, as well as the timing and circumstances, are variable depending upon the specifics of your emergency department visit. If you don't have a primary care physician on staff, we will provide you with a referral. We always advise you to contact your personal physician following an emergency department visit to inform them of the circumstance of the visit and for follow-up with them and/or the need for any referrals to a consulting specialist. The emergency department will also refer you to a specialist when appropriate. This referral assures that you have the opportunity for follow-up care with a specialist. All of these measure are taken in an effort to provide you with optimal care, which includes your follow-up. Under all circumstances we always encourage you to contact your private physician who remains a resource for coordinating your care. When calling for follow-up care, please make the office aware that this follow-up is from your recent emergency room visit. If for any reason you are refused follow-up, please contact the [facility] Emergency Department at and asked to speak to the emergency department charge nurse. Please follow up with your primary care physician. If you do not have a primary care physician, see below: [facility] [address] [place] [id number] [facility] [address] [place] [id number] [facility] [address] [place] [id number] Sepsis Event Note (ED) - Focused Exam Vital Signs: Vital Signs Temp Pulse Resp BP Pulse Ox 10/19/21 18:01 92 L 10/19/21 18:00 71 20 144/61 H 88 L 10/19/21 16:41 67 18 136/97 H 94 L 10/19/21 16:10 96.3 F L 75 18 139/80 85 L 10/19/21 16:08 96.3 F L 20 85 L - My Orders Last 24 Hours: My Active Orders 10/19/21 16:15 Saline Lock Insert [OM.PC] Stat - Assessment/Plan Last 24 Hours: My Active Orders 10/19/21 16:15 Saline Lock Insert [OM.PC] Stat
--- NOTE | 2021-10-19 16:52 | CT ---
INDICATION: Fell on blood thinners COMPARISON: None TECHNIQUE: CT examination of the head was performed as axial sections without intravenous contrast. Images were obtained from the vertex of the skull through the skull base. Please note that all CT scans at this facility use dose modulation, iterative reconstruction, and/or weight-based dosing when appropriate to reduce radiation dose to as low as reasonably achievable. FINDINGS: The brain shows no sign of mass lesion, mass effect, hemorrhage, or edema. There are involutional changes. There is moderate cortical atrophy and there is moderate white matter disease. There is no hydrocephalus. Extensive encephalomalacia in the right MCA distribution with associated ex vacuo dilatation of the adjoining right lateral ventricular system The visualized portions of the orbits are normal in appearance. The osseous structures are normal in appearance with no sign of abnormality in the skull base or calvarium. IMPRESSION: No acute posttraumatic findings. Old right MCA infarct. Please note that all CT scans at this facility use dose modulation, iterative reconstruction, and/or weight-based dosing when appropriate to reduce radiation dose to as low as reasonably achievable. Dictated by Ja Orellana MD @ 10/19/2021 4:50:25 PM (Electronically Signed)
--- NOTE | 2021-10-19 16:58 | CT ---
INDICATION: Trauma. On blood thinners COMPARISON: None TECHNIQUE: CT examination of the cervical spine is performed without contrast using spiral technique. Thin axial, sagittal and coronal reconstructions were made. Please note that all CT scans at this facility use dose modulation, iterative reconstruction, and/or weight-based dosing when appropriate to reduce radiation dose to as low as reasonably achievable. FINDINGS: : There is straightening. There has been anterior fusion at C4, C5 and C6. The hardware appears intact. Degenerative changes are noted. There is no fracture, dislocation or destructive process. The osseous structures are demineralized. No acute posttraumatic finding IMPRESSION: Straightening. Degenerative changes. Status post anterior cervical fusion C4, C5 and C6. Intact hardware. No fracture, dislocation or destructive process. Please note that all CT scans at this facility use dose modulation, iterative reconstruction, and/or weight-based dosing when appropriate to reduce radiation dose to as low as reasonably achievable. Dictated by Ja Orellana MD @ 10/19/2021 4:56:59 PM (Electronically Signed)
--- NOTE | 2021-10-19 17:01 | CR ---
Indication: Fall Technique: An AP view of the pelvis was obtained as well as AP and lateral views of the right hip. Comparison: None Findings: Bone mineral density is decreased. There are degenerative changes of visible lower lumbar spine. There is no visible fracture of the pelvis. I see no hip fracture. However, due to demineralization and soft tissue attenuation factors, the femoral head and neck are not seen on the lateral view on the right. If there is strong index of concern for right hip fracture, a frogleg lateral view could be attempted for further evaluation. Impression: Demineralization. Degenerative changes of the lower lumbar spine. Limited but grossly negative evaluation of the right hip. Please review the comment regarding a potential additional view regarding the right hip Dictated by Ja Orellana MD @ 10/19/2021 5:00:22 PM (Electronically Signed)
--- NOTE | 2021-10-19 17:03 | CR ---
Indication: Trauma Technique: A single view of the chest was acquired Comparison: None Findings: Postsurgical changes of the cervical spine. Heart size normal. Vague airspace opacities bilaterally could be vascular congestion or an inflammatory process. No obvious rib fracture. The greater tuberosity of the left humerus is somewhat irregular. If there is pain in this area, I would recommend a formal shoulder study Impression: Possibly abnormal greater tuberosity of the left humerus. If there is pain in this area status post trauma, a dedicated shoulder series would be advised. Patchy bilateral airspace opacities favor vascular congestion over an inflammatory process Dictated by Ja Orellana MD @ 10/19/2021 5:02:22 PM (Electronically Signed)
--- NOTE | 2021-10-19 17:09 | CT ---
Indication: Trauma Technique: CT examination of the pelvis was performed. The study was acquired in the axial plane. Thin-section sagittal and coronal reformatted imaging was performed lysine bone algorithm. Contrast was not administered. Imaging was acquired from approximately L4 through the subtrochanteric area bilaterally. Please note that all CT scans at this facility use dose modulation, iterative reconstruction, and/or weight-based dosing when appropriate to reduce radiation dose to as low as reasonably achievable. Comparison: Plain film from earlier this same day. Findings: SOFT TISSUES: Atherosclerotic vascular calcifications. Diverticulosis. Incidental fat necrosis in the buttocks bilaterally. OSSEOUS STRUCTURES: Demineralization. Degenerative changes of the spine lower lumbar spine. Regarding the hips and pelvis, there is no fracture, dislocation or destructive process. Impression: No fracture Please note that all CT scans at this facility use dose modulation, iterative reconstruction, and/or weight-based dosing when appropriate to reduce radiation dose to as low as reasonably achievable. Dictated by Ja Orellana MD @ 10/19/2021 5:07:47 PM (Electronically Signed)
[2021-10-19 18:12] LABS: BLOOD UREA NITROGEN,BUN 7 mg/dL (7.0-18.0); CARBON DIOXIDE,CO2 36.3 mmol/L (21.0-32.0); CHLORIDE,CL 99 mmol/L (98-107); GLUCOSE RANDOM 107 mg/dL (74-106); POTASSIUM,K 3.7 mmol/L (3.5-5.1); SODIUM,NA 141 mmol/L (136-145)
[2021-10-19 18:35] VITALS: BP 134/77; PULSE 77
== END 2021-10-19 18:41 | disposition home or self-care (01) ==
LOC: MW.ED 16:08
DX: M25.551 Pain in right hip (principal); I25.10 Atherosclerotic heart disease of native coronary artery without angina pectoris; I25.2 Old myocardial infarction; J44.9 Chronic obstructive pulmonary disease, unspecified; Z86.73 Personal history of transient ischemic attack (TIA), and cerebral infarction without residual deficits; Z88.0 Allergy status to penicillin; Z88.8 Allergy status to other drugs, medicaments and biological substances; Z79.82 Long term (current) use of aspirin; Z79.899 Other long term (current) drug therapy
CPT/HCPCS: 36415; 70450; 70450-26; 71045; 71045-26; 72125; 72125-26; 72192; 72192-26; 73502-26-RT; 73502-RT; 80053; 82550; 85025; 85610; 85730; 99285-25

== ENCOUNTER 2021-11-09 14:05 | Inpatient (IN) | payer MEDICARE, OTHER, MEDICAID ==
[2021-11-09 15:09] LABS: CORONAVIRUS COVID-19 NAA POSITIVE (NEGATIVE); INFLUENZA A NAA NEGATIVE (NEGATIVE); INFLUENZA B NAA NEGATIVE (NEGATIVE)
[2021-11-09] MEDS ORDERED: Acetaminophen/HYDROcodone 325-5 MG Tab PO ONE (20:09)
[2021-11-09] MEDS ORDERED: Albuterol/Ipratropium 3.0-0.5 MG/3 ML Neb Soln NEB PRN (20:47)
[2021-11-09] MEDS ORDERED: Acetaminophen 500 MG Tab PO PRN (20:54)
[2021-11-09 21:49] LABS: BLOOD UREA NITROGEN,BUN 7 mg/dL (7.0-18.0); CARBON DIOXIDE,CO2 39.4 mmol/L (21.0-32.0); CHLORIDE,CL 91 mmol/L (98-107); GLUCOSE RANDOM 101 mg/dL (74-106); POTASSIUM,K 2.6 mmol/L (3.5-5.1); SODIUM,NA 135 mmol/L (136-145)
[2021-11-09] MEDS ORDERED: REMDESIVIR 200 MG in Sodium Chloride 0.9% 250 ML IV ONE (22:28)
[2021-11-09] MEDS ORDERED: Albuterol/Ipratropium 4 GM Inhalation Spray INH PRN (22:29)
[2021-11-09] MEDS ORDERED: Potassium Chloride Riders 40 MEQ in Premix Bag 1 BAG IV ONE (22:31)
[2021-11-09] MEDS ORDERED: Potassium Chloride 10% 20 MEQ/15 ML Soln 30 ML UD Cup PO ONE (22:31)
[2021-11-09] MEDS ORDERED: Acetaminophen/oxyCODONE 325-10 MG Tab PO PRN ×2 (23:19→23:46)
[2021-11-09] MEDS ORDERED: Morphine 2 MG/ML SYRINGE IVPUSH PRN (23:21)
[2021-11-09] MEDS: Heparin Sodium 5,000 Units/ML Vial SUBCUT SCH (23:47)
[2021-11-09] MEDS: Dexamethasone 4 MG Tab PO SCH (23:47)
[2021-11-10] MEDS ORDERED: Divalproex Sodium Delayed-Release 500 MG Tab.CR PO ONE (01:00)
[2021-11-10] MEDS ORDERED: Pantoprazole 40 MG in Sodium Chloride 0.9% 10 ML IVPUSH ONE (01:15)
[2021-11-10] MEDS ORDERED: Divalproex Sodium 500 MG Tab.ER PO ONE (02:14)
[2021-11-10] MEDS: Heparin Sodium 5,000 Units/ML Vial SUBCUT SCH ×3 (05:53→20:11)
[2021-11-10 06:36] LABS: BLOOD UREA NITROGEN,BUN 6 mg/dL (7.0-18.0); CARBON DIOXIDE,CO2 36.2 mmol/L (21.0-32.0); CHLORIDE,CL 98 mmol/L (98-107); GLUCOSE RANDOM 116 mg/dL (74-106); POTASSIUM,K 3.4 mmol/L (3.5-5.1); SODIUM,NA 139 mmol/L (136-145)
[2021-11-10] MEDS: Dexamethasone 4 MG Tab PO SCH (10:13)
[2021-11-10] MEDS ORDERED: Magnesium Sulfate/Water 2 GM in Premix Bag 1 BAG IV ONE (11:01)
[2021-11-10] MEDS ORDERED: Acetaminophen/HYDROcodone 325-7.5 MG Tab PO PRN (11:06)
[2021-11-10] MEDS ORDERED: Acetaminophen 325 MG Tab PO PRN (11:15)
[2021-11-10] MEDS: Acetaminophen/HYDROcodone 325-5 MG Tab PO PRN ×2 (11:39→17:40)
[2021-11-10] MEDS: Divalproex Sodium Delayed-Release 500 MG Tab.CR PO SCH (13:38)
[2021-11-10] MEDS: Metoprolol Succinate 25 MG Tab.ER PO SCH (13:38)
[2021-11-10] MEDS: Baclofen 10 MG Tab PO PRN (13:38)
[2021-11-10] MEDS: Citalopram 20 MG Tab PO SCH (13:49)
[2021-11-10] MEDS: Baclofen 10 MG Tab PO SCH (20:11)
[2021-11-10] MEDS: atorvaSTATin 40 MG Tab PO SCH (20:12)
[2021-11-10] MEDS: Linaclotide [Linzess] 72 MCG Capsule PO SCH (20:15)
[2021-11-10] MEDS ORDERED: Polyethylene Glycol 3350 Powder 17 GM Packet PO PRN (21:54)
[2021-11-10] MEDS: REMDESIVIR 100 MG in Sodium Chloride 0.9% 100 ML IV SCH (22:44)
[2021-11-11] MEDS: Acetaminophen/HYDROcodone 325-5 MG Tab PO PRN ×2 (00:27→20:27)
[2021-11-11] MEDS: LORazepam 2 MG/ML SDV IVPUSH PRN ×2 (01:56→21:05)
[2021-11-11] MEDS: Heparin Sodium 5,000 Units/ML Vial SUBCUT SCH ×3 (05:56→20:26)
[2021-11-11] MEDS: Pantoprazole 40 MG Tab.CR PO SCH (06:56)
[2021-11-11 07:09] LABS: BLOOD UREA NITROGEN,BUN 12 mg/dL (7.0-18.0); CARBON DIOXIDE,CO2 32.8 mmol/L (21.0-32.0); CHLORIDE,CL 98 mmol/L (98-107); GLUCOSE RANDOM 111 mg/dL (74-106); POTASSIUM,K 3.2 mmol/L (3.5-5.1); SODIUM,NA 138 mmol/L (136-145)
[2021-11-11] MEDS: Dexamethasone 4 MG Tab PO SCH (09:09)
[2021-11-11] MEDS: Citalopram 20 MG Tab PO SCH (09:09)
[2021-11-11] MEDS: Metoprolol Succinate 25 MG Tab.ER PO SCH (09:11)
[2021-11-11] MEDS ORDERED: Potassium Chloride 20 MEQ Tab.ER PO ONE (10:50)
[2021-11-11] MEDS: Divalproex Sodium Delayed-Release 500 MG Tab.CR PO SCH (11:49)
[2021-11-11] MEDS: Baclofen 10 MG Tab PO PRN (12:11)
[2021-11-11] MEDS: Baclofen 10 MG Tab PO SCH (20:27)
[2021-11-11] MEDS: atorvaSTATin 40 MG Tab PO SCH (20:27)
[2021-11-11] MEDS: Linaclotide [Linzess] 72 MCG Capsule PO SCH (20:36)
[2021-11-11] MEDS: REMDESIVIR 100 MG in Sodium Chloride 0.9% 100 ML IV SCH (21:25)
[2021-11-12] MEDS: Heparin Sodium 5,000 Units/ML Vial SUBCUT SCH ×3 (04:57→20:15)
[2021-11-12] MEDS: Pantoprazole 40 MG Tab.CR PO SCH ×2 (06:11→06:43)
[2021-11-12] MEDS: Dexamethasone 4 MG Tab PO SCH (08:02)
[2021-11-12] MEDS: Metoprolol Succinate 25 MG Tab.ER PO SCH (08:02)
[2021-11-12] MEDS: Baclofen 10 MG Tab PO PRN ×3 (08:02→17:11)
[2021-11-12] MEDS: Citalopram 20 MG Tab PO SCH (08:02)
[2021-11-12] MEDS: Acetaminophen/HYDROcodone 325-5 MG Tab PO PRN ×2 (08:03→17:10)
[2021-11-12] MEDS: Divalproex Sodium Delayed-Release 500 MG Tab.CR PO SCH (08:06)
[2021-11-12] MEDS: LORazepam 2 MG/ML SDV IVPUSH PRN ×2 (08:12→21:18)
[2021-11-12 08:54] LABS: BLOOD UREA NITROGEN,BUN 13 mg/dL (7.0-18.0); CARBON DIOXIDE,CO2 30.6 mmol/L (21.0-32.0); CHLORIDE,CL 97 mmol/L (98-107); GLUCOSE RANDOM 88 mg/dL (74-106); POTASSIUM,K 3.1 mmol/L (3.5-5.1); SODIUM,NA 136 mmol/L (136-145)
[2021-11-12] MEDS ORDERED: Potassium Chloride 20 MEQ Tab.ER PO ONE ×3 (10:42→21:00)
[2021-11-12] MEDS ORDERED: Magnesium Sulfate/Water 2 GM in Premix Bag 1 BAG IV ONE (10:43)
[2021-11-12] MEDS: Acetaminophen 325 MG Tab PO PRN ×2 (11:42→20:14)
[2021-11-12] MEDS: atorvaSTATin 40 MG Tab PO SCH (20:13)
[2021-11-12] MEDS: Baclofen 10 MG Tab PO SCH (20:14)
[2021-11-12] MEDS: Linaclotide [Linzess] 72 MCG Capsule PO SCH (20:19)
[2021-11-12] MEDS: REMDESIVIR 100 MG in Sodium Chloride 0.9% 100 ML IV SCH (21:18)
[2021-11-13] MEDS: Heparin Sodium 5,000 Units/ML Vial SUBCUT SCH ×3 (04:34→21:17)
[2021-11-13] MEDS: Pantoprazole 40 MG Tab.CR PO SCH (06:45)
[2021-11-13] MEDS: Citalopram 20 MG Tab PO SCH (08:01)
[2021-11-13] MEDS: Metoprolol Succinate 25 MG Tab.ER PO SCH (08:01)
[2021-11-13] MEDS: Divalproex Sodium Delayed-Release 500 MG Tab.CR PO SCH (08:01)
[2021-11-13] MEDS: Baclofen 10 MG Tab PO PRN ×2 (08:01→16:11)
[2021-11-13 08:02] LABS: BLOOD UREA NITROGEN,BUN 16 mg/dL (7.0-18.0); CARBON DIOXIDE,CO2 30.8 mmol/L (21.0-32.0); CHLORIDE,CL 101 mmol/L (98-107); GLUCOSE RANDOM 102 mg/dL (74-106); SODIUM,NA 137 mmol/L (136-145)
[2021-11-13] MEDS: Dexamethasone 4 MG Tab PO SCH (08:02)
[2021-11-13] MEDS: Acetaminophen 325 MG Tab PO PRN (08:03)
[2021-11-13] MEDS: Acetaminophen/HYDROcodone 325-5 MG Tab PO PRN (16:11)
[2021-11-13] MEDS: Baclofen 10 MG Tab PO SCH (21:17)
[2021-11-13] MEDS: atorvaSTATin 40 MG Tab PO SCH (21:17)
[2021-11-13] MEDS: REMDESIVIR 100 MG in Sodium Chloride 0.9% 100 ML IV SCH (21:18)
[2021-11-13] MEDS: Linaclotide [Linzess] 72 MCG Capsule PO SCH (21:32)
[2021-11-13] MEDS: LORazepam 2 MG/ML SDV IVPUSH PRN (22:22)
[2021-11-14] MEDS: Heparin Sodium 5,000 Units/ML Vial SUBCUT SCH ×3 (04:59→20:47)
[2021-11-14] MEDS: Acetaminophen/HYDROcodone 325-5 MG Tab PO PRN ×3 (06:22→19:40)
[2021-11-14] MEDS: Metoprolol Succinate 25 MG Tab.ER PO SCH (08:37)
[2021-11-14] MEDS: Citalopram 20 MG Tab PO SCH (08:37)
[2021-11-14] MEDS: Pantoprazole 40 MG Tab.CR PO SCH (08:37)
[2021-11-14] MEDS: Divalproex Sodium Delayed-Release 500 MG Tab.CR PO SCH (09:51)
[2021-11-14] MEDS: atorvaSTATin 40 MG Tab PO SCH (20:50)
[2021-11-14] MEDS: Baclofen 10 MG Tab PO SCH (20:50)
[2021-11-14] MEDS: Linaclotide [Linzess] 72 MCG Capsule PO SCH (20:51)
[2021-11-14] MEDS: LORazepam 2 MG/ML SDV IVPUSH PRN (22:21)
[2021-11-15] MEDS: Heparin Sodium 5,000 Units/ML Vial SUBCUT SCH ×3 (04:32→20:12)
[2021-11-15] MEDS: Acetaminophen/HYDROcodone 325-5 MG Tab PO PRN ×3 (04:54→20:15)
[2021-11-15] MEDS: Metoprolol Succinate 25 MG Tab.ER PO SCH (08:14)
[2021-11-15] MEDS: Pantoprazole 40 MG Tab.CR PO SCH (08:15)
[2021-11-15] MEDS: Divalproex Sodium Delayed-Release 500 MG Tab.CR PO SCH (08:15)
[2021-11-15] MEDS: Acetaminophen 325 MG Tab PO PRN (08:15)
[2021-11-15] MEDS: Citalopram 20 MG Tab PO SCH (08:16)
[2021-11-15 10:09] LABS: BLOOD UREA NITROGEN,BUN 18 mg/dL (7.0-18.0); CARBON DIOXIDE,CO2 23.9 mmol/L (21.0-32.0); CHLORIDE,CL 100 mmol/L (98-107); GLUCOSE RANDOM 217 mg/dL (74-106); POTASSIUM,K 4.4 mmol/L (3.5-5.1); SODIUM,NA 135 mmol/L (136-145)
[2021-11-15] MEDS: Baclofen 10 MG Tab PO PRN ×2 (10:24→15:48)
[2021-11-15] MEDS: Lidocaine 5% 700 MG Patch TRDERM SCH (11:58)
[2021-11-15] MEDS: LORazepam 2 MG/ML SDV IVPUSH PRN ×2 (15:48→23:04)
[2021-11-15] MEDS: atorvaSTATin 40 MG Tab PO SCH (20:12)
[2021-11-15] MEDS: Baclofen 10 MG Tab PO SCH (20:12)
[2021-11-15] MEDS: Linaclotide [Linzess] 72 MCG Capsule PO SCH (23:22)
[2021-11-16] MEDS: Heparin Sodium 5,000 Units/ML Vial SUBCUT SCH ×3 (04:55→21:05)
[2021-11-16] MEDS: Pantoprazole 40 MG Tab.CR PO SCH (06:29)
[2021-11-16] MEDS: Acetaminophen/HYDROcodone 325-5 MG Tab PO PRN ×3 (08:44→21:06)
[2021-11-16] MEDS: Divalproex Sodium Delayed-Release 500 MG Tab.CR PO SCH (08:44)
[2021-11-16] MEDS: Citalopram 20 MG Tab PO SCH (08:47)
[2021-11-16] MEDS: Metoprolol Succinate 25 MG Tab.ER PO SCH (08:53)
[2021-11-16 09:59] LABS: BLOOD UREA NITROGEN,BUN 16 mg/dL (7.0-18.0); CARBON DIOXIDE,CO2 27.9 mmol/L (21.0-32.0); CHLORIDE,CL 101 mmol/L (98-107); GLUCOSE RANDOM 102 mg/dL (74-106); SODIUM,NA 136 mmol/L (136-145)
[2021-11-16] MEDS: Lidocaine 5% 700 MG Patch TRDERM SCH (11:57)
[2021-11-16] MEDS: Acetaminophen 325 MG Tab PO PRN (19:34)
[2021-11-16] MEDS: Baclofen 10 MG Tab PO SCH (21:05)
[2021-11-16] MEDS: atorvaSTATin 40 MG Tab PO SCH (21:05)
[2021-11-16] MEDS: LORazepam 2 MG/ML SDV IVPUSH PRN (21:07)
[2021-11-17] MEDS: Linaclotide [Linzess] 72 MCG Capsule PO SCH ×2 (00:45→21:27)
[2021-11-17] MEDS: Heparin Sodium 5,000 Units/ML Vial SUBCUT SCH ×3 (04:49→21:26)
[2021-11-17] MEDS: Pantoprazole 40 MG Tab.CR PO SCH (08:18)
[2021-11-17] MEDS: Acetaminophen/HYDROcodone 325-5 MG Tab PO PRN ×3 (08:18→22:24)
[2021-11-17] MEDS: Divalproex Sodium Delayed-Release 500 MG Tab.CR PO SCH (08:28)
[2021-11-17] MEDS: Citalopram 20 MG Tab PO SCH (08:28)
[2021-11-17] MEDS: Metoprolol Succinate 25 MG Tab.ER PO SCH (08:29)
[2021-11-17 09:40] LABS: BLOOD UREA NITROGEN,BUN 14 mg/dL (7.0-18.0); CARBON DIOXIDE,CO2 26.2 mmol/L (21.0-32.0); CHLORIDE,CL 101 mmol/L (98-107); GLUCOSE RANDOM 136 mg/dL (74-106); POTASSIUM,K 3.8 mmol/L (3.5-5.1); SODIUM,NA 134 mmol/L (136-145)
[2021-11-17] MEDS: Lidocaine 5% 700 MG Patch TRDERM SCH (12:14)
[2021-11-17] MEDS: Acetaminophen 325 MG Tab PO PRN (12:15)
[2021-11-17] MEDS: atorvaSTATin 40 MG Tab PO SCH (21:26)
[2021-11-17] MEDS: Baclofen 10 MG Tab PO SCH (21:26)
[2021-11-17] MEDS: LORazepam 2 MG/ML SDV IVPUSH PRN (23:48)
[2021-11-18] MEDS: Heparin Sodium 5,000 Units/ML Vial SUBCUT SCH ×3 (05:59→21:14)
[2021-11-18 07:49] LABS: BLOOD UREA NITROGEN,BUN 16 mg/dL (7.0-18.0); CARBON DIOXIDE,CO2 28.4 mmol/L (21.0-32.0); CHLORIDE,CL 101 mmol/L (98-107); GLUCOSE RANDOM 93 mg/dL (74-106); POTASSIUM,K 4.3 mmol/L (3.5-5.1); SODIUM,NA 136 mmol/L (136-145)
[2021-11-18] MEDS: Pantoprazole 40 MG Tab.CR PO SCH (08:42)
[2021-11-18] MEDS: Acetaminophen 325 MG Tab PO PRN ×2 (08:42→18:39)
[2021-11-18] MEDS: Citalopram 20 MG Tab PO SCH (08:45)
[2021-11-18] MEDS: Metoprolol Succinate 25 MG Tab.ER PO SCH (08:45)
[2021-11-18] MEDS: Divalproex Sodium Delayed-Release 500 MG Tab.CR PO SCH (08:45)
[2021-11-18] MEDS: Lidocaine 5% 700 MG Patch TRDERM SCH (11:46)
[2021-11-18] MEDS: Acetaminophen/HYDROcodone 325-5 MG Tab PO PRN ×2 (13:27→21:09)
[2021-11-18] MEDS: Baclofen 10 MG Tab PO SCH (21:14)
[2021-11-18] MEDS: atorvaSTATin 40 MG Tab PO SCH (21:14)
[2021-11-18] MEDS: Linaclotide [Linzess] 72 MCG Capsule PO SCH (22:05)
[2021-11-18] MEDS: LORazepam 2 MG/ML SDV IVPUSH PRN (23:35)
[2021-11-19] MEDS: Heparin Sodium 5,000 Units/ML Vial SUBCUT SCH ×3 (05:14→20:31)
[2021-11-19] MEDS: Pantoprazole 40 MG Tab.CR PO SCH (06:39)
[2021-11-19] MEDS: Divalproex Sodium Delayed-Release 500 MG Tab.CR PO SCH (09:09)
[2021-11-19] MEDS: Metoprolol Succinate 25 MG Tab.ER PO SCH (09:09)
[2021-11-19] MEDS: Acetaminophen 325 MG Tab PO PRN (09:12)
[2021-11-19] MEDS: Citalopram 20 MG Tab PO SCH (09:12)
[2021-11-19] MEDS ORDERED: Hydrocortisone 1% Crm 30 GM Tube TOP PRN (10:21)
[2021-11-19] MEDS: Lidocaine 5% 700 MG Patch TRDERM SCH (12:32)
[2021-11-19] MEDS: Acetaminophen/HYDROcodone 325-5 MG Tab PO PRN ×2 (14:14→20:31)
[2021-11-19] MEDS: atorvaSTATin 40 MG Tab PO SCH (20:34)
[2021-11-19] MEDS: Baclofen 10 MG Tab PO SCH (20:34)
[2021-11-19] MEDS: Linaclotide [Linzess] 72 MCG Capsule PO SCH (21:00)
[2021-11-20] MEDS: LORazepam 2 MG/ML SDV IVPUSH PRN (00:28)
[2021-11-20] MEDS: Heparin Sodium 5,000 Units/ML Vial SUBCUT SCH ×3 (04:32→20:12)
[2021-11-20] MEDS: Pantoprazole 40 MG Tab.CR PO SCH (06:30)
[2021-11-20] MEDS: Acetaminophen/HYDROcodone 325-5 MG Tab PO PRN ×3 (06:37→20:12)
[2021-11-20 08:03] LABS: BLOOD UREA NITROGEN,BUN 14 mg/dL (7.0-18.0); CARBON DIOXIDE,CO2 28.7 mmol/L (21.0-32.0); CHLORIDE,CL 99 mmol/L (98-107); GLUCOSE RANDOM 97 mg/dL (74-106); SODIUM,NA 136 mmol/L (136-145)
[2021-11-20] MEDS: Divalproex Sodium Delayed-Release 500 MG Tab.CR PO SCH (10:22)
[2021-11-20] MEDS: Metoprolol Succinate 25 MG Tab.ER PO SCH (10:22)
[2021-11-20] MEDS: Citalopram 20 MG Tab PO SCH (10:23)
[2021-11-20] MEDS: Acetaminophen 325 MG Tab PO PRN ×2 (10:30→16:07)
[2021-11-20] MEDS: Lidocaine 5% 700 MG Patch TRDERM SCH (10:30)
[2021-11-20] MEDS: atorvaSTATin 40 MG Tab PO SCH (20:11)
[2021-11-20] MEDS: Baclofen 10 MG Tab PO SCH (20:12)
[2021-11-20] MEDS: Linaclotide [Linzess] 72 MCG Capsule PO SCH (20:36)
[2021-11-20] MEDS ORDERED: LORazepam 0.5 MG Tab PO PRN (20:41)
[2021-11-21] MEDS: Heparin Sodium 5,000 Units/ML Vial SUBCUT SCH ×2 (05:00→14:06)
[2021-11-21] MEDS: Pantoprazole 40 MG Tab.CR PO SCH (07:54)
[2021-11-21] MEDS: Citalopram 20 MG Tab PO SCH (09:34)
[2021-11-21] MEDS: Divalproex Sodium Delayed-Release 500 MG Tab.CR PO SCH (09:34)
[2021-11-21] MEDS: Metoprolol Succinate 25 MG Tab.ER PO SCH (09:35)
[2021-11-21 12:26] VITALS: BP 132/68; PULSE 80
[2021-11-21] MEDS: Lidocaine 5% 700 MG Patch TRDERM SCH (12:39)
== END 2021-11-21 14:35 | DRG 178 ==
LOC: MW.ED 14:05 → MW.MS 18:59 → UNDOADMIN 19:24 → MW.MS 19:24
PROVIDERS: ADMIT Student in an Organized Health Care Education/Training Program; ATTEND Student in an Organized Health Care Education/Training Program
PROC: XW033E5 Introduction of Remdesivir Anti-infective into Peripheral Vein, Percutaneous Approach, New Technology Group 5 (ICD-10-PCS; principal; 2021-11-09)
PROC: 3E0DX3Z Introduction of Anti-inflammatory into Mouth and Pharynx, External Approach (ICD-10-PCS; 2021-11-09)
DX: S32.019A Unspecified fracture of first lumbar vertebra, initial encounter for closed fracture (principal); W19.XXXA Unspecified fall, initial encounter; U07.1 COVID-19; G72.81 Critical illness myopathy; I69.354 Hemiplegia and hemiparesis following cerebral infarction affecting left non-dominant side; J44.9 Chronic obstructive pulmonary disease, unspecified; G89.29 Other chronic pain; S32.010D Wedge compression fracture of first lumbar vertebra, subsequent encounter for fracture with routine healing; Z88.1 Allergy status to other antibiotic agents; R33.0 Drug induced retention of urine; T44.3X5A Adverse effect of other parasympatholytics [anticholinergics and antimuscarinics] and spasmolytics, initial encounter; H54.7 Unspecified visual loss; F32.A Depression, unspecified; E87.6 Hypokalemia; E83.42 Hypomagnesemia; Z66 Do not resuscitate; K59.03 Drug induced constipation; R07.9 Chest pain, unspecified; R26.2 Difficulty in walking, not elsewhere classified; Z88.0 Allergy status to penicillin; Z88.8 Allergy status to other drugs, medicaments and biological substances; Z79.82 Long term (current) use of aspirin; Z79.899 Other long term (current) drug therapy; Z90.710 Acquired absence of both cervix and uterus; Z90.49 Acquired absence of other specified parts of digestive tract
CPT/HCPCS: 0240U; 36415; 51702; 71045; 72100; 72148; 80048; 80053; 81003; 83735; 84100; 85025; 93005; 97110; 97162; 97164; 97530; 99285; A9270-GY; C9113; J1644; J2060; J2270; J3475; J3480; J7050; J8540

== ENCOUNTER 2022-07-10 14:49 | Emergency (ER) | payer MEDICARE, OTHER, MEDICAID ==
[2022-07-10] MEDS ORDERED: Sodium Chloride 0.9% 2.5 ML Syringe FLUSH PRN (14:51)
[2022-07-10] MEDS ORDERED: Sodium Chloride 0.9% 10 ML Syringe FLUSH PRN (14:51)
[2022-07-10 15:50] LABS: CARBON DIOXIDE,CO2 34.4 mmol/L (21.0-32.0); POTASSIUM,K 3.9 mmol/L (3.5-5.1)
[2022-07-10 16:46] VITALS: BP 129/55; PULSE 75
== END 2022-07-10 16:51 | disposition home or self-care (01) ==
LOC: MW.ED 14:49
DX: R06.02 Shortness of breath (principal); I10 Essential (primary) hypertension; J44.9 Chronic obstructive pulmonary disease, unspecified; K21.9 Gastro-esophageal reflux disease without esophagitis; Z86.73 Personal history of transient ischemic attack (TIA), and cerebral infarction without residual deficits; Z88.0 Allergy status to penicillin; Z88.5 Allergy status to narcotic agent; Z79.899 Other long term (current) drug therapy; Z20.822 Contact with and (suspected) exposure to COVID-19
CPT/HCPCS: 36415; 70450; 71045; 80053; 81003; 82947; 83880; 84484; 85025; 93005; 99285; J3490; U0002

== ENCOUNTER 2023-08-03 14:17 | Inpatient (IN) | payer MEDICARE, OTHER, MEDICAID ==
[2023-08-03] MEDS ORDERED: Sodium Chloride 0.9% 1,000 ML IV ONE ×2 (14:31→18:55)
[2023-08-03 15:18] LABS: BASOPHILS ABSOLUTE AUTO 0.04 K/uL (0.00-0.20); BASOPHILS PERCENT AUTO 0.5 % (0.0-1.0); HEMATOCRIT 37.6 % (37.0-47.0); HEMOGLOBIN 12.2 g/dL (12.0-16.0); LYMPHOCYTES ABSOLUTE AUTO 2.29 K/uL (1.00-4.80); LYMPHOCYTES PERCENT AUTO 28.2 % (24.0-44.0); MEAN CORPUSCULAR HEMOGLOBIN 26.8 pg (28.0-32.0); MEAN CORPUSCULAR HGB CONC 32.4 g/dL (32.0-36.0); MEAN CORPUSCULAR VOLUME 82.5 fL (83.0-99.0); MEAN PLATELET VOLUME 11.4 fL (9.4-12.3); MONOCYTES ABSOLUTE AUTO 0.91 K/uL (0.00-0.80); MONOCYTES PERCENT AUTO 11.2 % (0.0-8.0); NEUTROPHILS ABSOLUTE AUTO 4.7 K/uL (1.8-7.7); NEUTROPHILS PERCENT AUTO 58.4 % (41.0-71.0); PLATELET COUNT,PLT 154 K/uL (150-400); RED BLOOD CELL COUNT 4.56 M/uL (4.10-5.30); WHITE BLOOD CELL COUNT,WBC 8.11 K/uL (3.9-11.3)
[2023-08-03 15:34] LABS: INR 1.05 (0.86-1.11)
[2023-08-03 15:54] LABS: APPEARANCE,URINE CLEAR; BILIRUBIN,URINE NEGATIVE (NEGATIVE); COLOR,URINE YELLOW; GLUCOSE,URINE NEGATIVE (NEGATIVE); KETONES,URINE NEGATIVE (NEGATIVE); LEUKOCYTE ESTERASE,URINE NEGATIVE (NEGATIVE); NITRITE,URINE POSITIVE (NEGATIVE); OCCULT BLOOD,URINE NEGATIVE (NEGATIVE); PROTEIN,URINE NEGATIVE (NEGATIVE)
[2023-08-03 15:55] LABS: A/G RATIO 0.8 (0.9-1.6); ALBUMIN 2.9 g/dL (3.4-5.0); BILIRUBIN TOTAL 0.4 mg/dL (0.2-1.0); CALCIUM 8.3 mg/dL (8.5-10.1); CARBON DIOXIDE,CO2 31.2 mmol/L (21.0-32.0); CREATININE 0.6 mg/dL (0.6-1.0); EST CRCL DRUG DOSING (CG) 60.88 mL/min; POTASSIUM,K 3.7 mmol/L (3.5-5.1); PROTEIN TOTAL,TP 6.6 g/dL (6.4-8.2)
[2023-08-03 16:08] LABS: CORONAVIRUS COVID-19 NAA POSITIVE (NEGATIVE); INFLUENZA A NAA NEGATIVE (NEGATIVE); INFLUENZA B NAA NEGATIVE (NEGATIVE)
[2023-08-03 16:19] LABS: LACTIC ACID 1.3 mmol/L (0.4-2.0)
[2023-08-03 16:34] LABS: BACTERIA,URINE RARE (NEGATIVE); EPITHELIAL CELLS,URINE MODERATE (NONE-FEW); RBC,URINE NONE SEEN (0-2/HPF); WBC,URINE NONE SEEN (0-5/HPF)
[2023-08-03] MEDS ORDERED: REMDESIVIR 200 MG in Sodium Chloride 0.9% 250 ML IV ONE (17:42)
[2023-08-03] MEDS ORDERED: Albuterol/Ipratropium 3.0-0.5 MG/3 ML Neb Soln NEB PRN (18:55)
[2023-08-03] MEDS ORDERED: Ondansetron 4 MG/2 ML SDV IVPUSH PRN (18:55)
[2023-08-03] MEDS ORDERED: Polyethylene Glycol 3350 Powder 17 GM Packet PO PRN (18:55)
[2023-08-03] MEDS ORDERED: REMDESIVIR 100 MG in Sodium Chloride 0.9% 100 ML IV SCH (19:00)
[2023-08-03] MEDS ORDERED: Benzonatate 100 MG Cap PO PRN (19:46)
[2023-08-03] MEDS: Pantoprazole 40 MG in Sodium Chloride 0.9% 10 ML IVPUSH SCH (20:41)
[2023-08-03] MEDS: Enoxaparin 40 MG/0.4 ML Syringe SUBCUT SCH (20:41)
[2023-08-03 21:19] LABS: A/G RATIO 0.8 (0.9-1.6); ALBUMIN 3.1 g/dL (3.4-5.0); BILIRUBIN DIRECT 0.2 mg/dL (0.0-0.5); BILIRUBIN TOTAL 0.5 mg/dL (0.2-1.0); CALCIUM 8.2 mg/dL (8.5-10.1); CARBON DIOXIDE,CO2 30.6 mmol/L (21.0-32.0); CREATININE 0.5 mg/dL (0.6-1.0); EST CRCL DRUG DOSING (CG) 102.6 mL/min; POTASSIUM,K 3.8 mmol/L (3.5-5.1)
[2023-08-03] MEDS: cefTRIAXone 1 GM in Sodium Chloride 0.9% 50 ML IV SCH (21:46)
[2023-08-03] MEDS ORDERED: Magnesium Oxide 400 MG Tab PO ONE (22:14)
[2023-08-03] MEDS: Acetaminophen 325 MG Tab PO PRN (23:01)
[2023-08-04 06:51] LABS: BASOPHILS ABSOLUTE AUTO 0.04 K/uL (0.00-0.20); BASOPHILS PERCENT AUTO 0.6 % (0.0-1.0); EOSINOPHILS ABSOLUTE AUTO 0.02 K/uL (0.00-0.45); EOSINOPHILS PERCENT AUTO 0.3 % (0.0-6.0); HEMATOCRIT 38.7 % (37.0-47.0); HEMOGLOBIN 12.5 g/dL (12.0-16.0); LYMPHOCYTES ABSOLUTE AUTO 1.64 K/uL (1.00-4.80); LYMPHOCYTES PERCENT AUTO 25.6 % (24.0-44.0); MEAN CORPUSCULAR HEMOGLOBIN 26.5 pg (28.0-32.0); MEAN CORPUSCULAR HGB CONC 32.3 g/dL (32.0-36.0); MEAN PLATELET VOLUME 10.8 fL (9.4-12.3); MONOCYTES PERCENT AUTO 9.4 % (0.0-8.0); NEUTROPHILS PERCENT AUTO 62.8 % (41.0-71.0); PLATELET COUNT,PLT 146 K/uL (150-400); RED BLOOD CELL COUNT 4.72 M/uL (4.10-5.30)
[2023-08-04 07:31] LABS: A/G RATIO 0.8 (0.9-1.6); ALBUMIN 3.1 g/dL (3.4-5.0); BILIRUBIN TOTAL 0.4 mg/dL (0.2-1.0); CALCIUM 8.3 mg/dL (8.5-10.1); CARBON DIOXIDE,CO2 29.9 mmol/L (21.0-32.0); CREATININE 0.5 mg/dL (0.6-1.0); EST CRCL DRUG DOSING (CG) 102.6 mL/min; MAGNESIUM 1.9 mg/dL (1.8-2.4); PHOSPHORUS 2.9 mg/dL (2.6-4.7); POTASSIUM,K 3.4 mmol/L (3.5-5.1); PROTEIN TOTAL,TP 7.2 g/dL (6.4-8.2)
[2023-08-04] MEDS: Dexamethasone 4 MG Tab PO SCH (09:26)
[2023-08-04] MEDS ORDERED: Potassium Chloride 20 MEQ Tab.ER PO ONE ×2 (10:05→13:15)
[2023-08-04] MEDS: Albuterol/Ipratropium 3.0-0.5 MG/3 ML Neb Soln NEB SCH ×3 (17:08→23:57)
[2023-08-04] MEDS: Acetaminophen 325 MG Tab PO PRN ×2 (18:30→23:49)
[2023-08-04] MEDS: Pantoprazole 40 MG in Sodium Chloride 0.9% 10 ML IVPUSH SCH (18:30)
[2023-08-04] MEDS: Enoxaparin 40 MG/0.4 ML Syringe SUBCUT SCH (18:30)
[2023-08-04] MEDS ORDERED: REMDESIVIR 100 MG in Sodium Chloride 0.9% 100 ML IV SCH (19:00)
[2023-08-04] MEDS ORDERED: Albuterol/Ipratropium 4 GM Inhalation Spray INH PRN (19:06)
[2023-08-04] MEDS: cefTRIAXone 1 GM in Sodium Chloride 0.9% 50 ML IV SCH (21:09)
[2023-08-04] MEDS: Metoprolol Succinate 25 MG Tab.ER PO SCH (21:29)
[2023-08-04] MEDS: Divalproex Sodium Delayed-Release 500 MG Tab.CR PO SCH (21:29)
[2023-08-04] MEDS: Citalopram 20 MG Tab PO SCH (21:29)
[2023-08-05 06:16] LABS: BASOPHILS ABSOLUTE AUTO 0.01 K/uL (0.00-0.20); BASOPHILS PERCENT AUTO 0.1 % (0.0-1.0); HEMATOCRIT 43.5 % (37.0-47.0); IMMATURE GRAN PERCENT AUTO 1.5 % (0.0-0.4); LYMPHOCYTES ABSOLUTE AUTO 1.75 K/uL (1.00-4.80); LYMPHOCYTES PERCENT AUTO 25.8 % (24.0-44.0); MEAN CORPUSCULAR HEMOGLOBIN 25.9 pg (28.0-32.0); MEAN CORPUSCULAR HGB CONC 32.2 g/dL (32.0-36.0); MEAN CORPUSCULAR VOLUME 80.4 fL (83.0-99.0); MEAN PLATELET VOLUME 10.4 fL (9.4-12.3); MONOCYTES PERCENT AUTO 10.3 % (0.0-8.0); NEUTROPHILS ABSOLUTE AUTO 4.2 K/uL (1.8-7.7); NEUTROPHILS PERCENT AUTO 62.3 % (41.0-71.0); PLATELET COUNT,PLT 194 K/uL (150-400); RED BLOOD CELL COUNT 5.41 M/uL (4.10-5.30); WHITE BLOOD CELL COUNT,WBC 6.77 K/uL (3.9-11.3)
[2023-08-05 06:36] LABS: A/G RATIO 0.7 (0.9-1.6); ALBUMIN 3.4 g/dL (3.4-5.0); BILIRUBIN TOTAL 0.5 mg/dL (0.2-1.0); CALCIUM 9.1 mg/dL (8.5-10.1); CREATININE 0.6 mg/dL (0.6-1.0); EST CRCL DRUG DOSING (CG) 85.5 mL/min; POTASSIUM,K 3.9 mmol/L (3.5-5.1)
[2023-08-05] MEDS: Acetaminophen 325 MG Tab PO PRN ×2 (08:17→19:35)
[2023-08-05] MEDS: Citalopram 20 MG Tab PO SCH (09:28)
[2023-08-05] MEDS: Dexamethasone 4 MG Tab PO SCH (09:28)
[2023-08-05] MEDS: Metoprolol Succinate 25 MG Tab.ER PO SCH (09:29)
[2023-08-05] MEDS: Divalproex Sodium Delayed-Release 500 MG Tab.CR PO SCH (09:30)
[2023-08-05] MEDS ORDERED: Phenazopyridine 200 MG Tab PO ONE (11:19)
[2023-08-05] MEDS: Enoxaparin 40 MG/0.4 ML Syringe SUBCUT SCH (18:16)
[2023-08-05] MEDS: Pantoprazole 40 MG in Sodium Chloride 0.9% 10 ML IVPUSH SCH (18:17)
[2023-08-05] MEDS: cefTRIAXone 1 GM in Sodium Chloride 0.9% 50 ML IV SCH (19:34)
[2023-08-06] MEDS: Acetaminophen 325 MG Tab PO PRN ×2 (01:24→13:07)
[2023-08-06 07:11] LABS: HEMATOCRIT 43.7 % (37.0-47.0); HEMOGLOBIN 14.9 g/dL (12.0-16.0); MEAN CORPUSCULAR HEMOGLOBIN 26.8 pg (28.0-32.0); MEAN CORPUSCULAR HGB CONC 34.1 g/dL (32.0-36.0); MEAN CORPUSCULAR VOLUME 78.7 fL (83.0-99.0); MEAN PLATELET VOLUME 11.1 fL (9.4-12.3); PLATELET COUNT,PLT 216 K/uL (150-400); RED BLOOD CELL COUNT 5.55 M/uL (4.10-5.30); WHITE BLOOD CELL COUNT,WBC 8.39 K/uL (3.9-11.3)
[2023-08-06 07:34] LABS: A/G RATIO 0.9 (0.9-1.6); ALBUMIN 3.5 g/dL (3.4-5.0); BILIRUBIN TOTAL 0.5 mg/dL (0.2-1.0); CARBON DIOXIDE,CO2 27.2 mmol/L (21.0-32.0); CREATININE 0.5 mg/dL (0.6-1.0); EST CRCL DRUG DOSING (CG) 102.6 mL/min; POTASSIUM,K 3.9 mmol/L (3.5-5.1); PROTEIN TOTAL,TP 7.3 g/dL (6.4-8.2)
[2023-08-06 09:31] LABS: BAND ABSOLUTE MAN 0.2; BAND PERCENT MAN 2 %; EOSINOPHILS ABSOLUTE MAN 0.1 (0.0-0.7); EOSINOPHILS PERCENT MAN 1 % (0.0-7.0); LYMPHOCYTES ABSOLUTE MAN 2.9 (0.6-2.4); LYMPHOCYTES PERCENT MAN 34 % (16.0-40.0); MONOCYTES ABSOLUTE MAN 0.5 (0.0-0.8); MONOCYTES PERCENT MAN 6 % (0.0-15.0); SEG NEUTROPHILS ABSOLUTE MAN 4.8 (1.4-5.7); SEG NEUTROPHILS PERCENT MAN 57 % (48.0-80.0)
[2023-08-06 09:32] LABS: REACTIVE LYMPHOCYTES FEW
[2023-08-06] MEDS: Dexamethasone 4 MG Tab PO SCH (10:09)
[2023-08-06] MEDS: Divalproex Sodium Delayed-Release 500 MG Tab.CR PO SCH (10:09)
[2023-08-06] MEDS: Citalopram 20 MG Tab PO SCH (10:09)
[2023-08-06] MEDS: Metoprolol Succinate 25 MG Tab.ER PO SCH (10:09)
[2023-08-06 10:10] VITALS: BP 150/77; PULSE 71
== END 2023-08-06 13:55 | disposition home or self-care (01) | DRG 177 ==
LOC: MW.ED 14:17 → MW.MS 17:40
PROVIDERS: ADMIT Family Medicine; ATTEND Family Medicine
PROC: XW033E5 Introduction of Remdesivir Anti-infective into Peripheral Vein, Percutaneous Approach, New Technology Group 5 (ICD-10-PCS; principal; 2023-08-03)
PROC: 3E0333Z Introduction of Anti-inflammatory into Peripheral Vein, Percutaneous Approach (ICD-10-PCS; 2023-08-03)
DX: U07.1 COVID-19 (principal); R09.02 Hypoxemia; J12.82 Pneumonia due to coronavirus disease 2019; R53.1 Weakness; R29.6 Repeated falls; J96.01 Acute respiratory failure with hypoxia; N39.0 Urinary tract infection, site not specified; I69.354 Hemiplegia and hemiparesis following cerebral infarction affecting left non-dominant side; J44.9 Chronic obstructive pulmonary disease, unspecified; K21.9 Gastro-esophageal reflux disease without esophagitis; Z66 Do not resuscitate; G43.909 Migraine, unspecified, not intractable, without status migrainosus; M54.2 Cervicalgia; G89.29 Other chronic pain; E86.0 Dehydration; F32.A Depression, unspecified; I10 Essential (primary) hypertension; E10.9 Type 1 diabetes mellitus without complications; M19.90 Unspecified osteoarthritis, unspecified site; R26.2 Difficulty in walking, not elsewhere classified; R74.01 Elevation of levels of liver transaminase levels; Z86.73 Personal history of transient ischemic attack (TIA), and cerebral infarction without residual deficits; Z88.1 Allergy status to other antibiotic agents; Z88.0 Allergy status to penicillin; Z88.8 Allergy status to other drugs, medicaments and biological substances; Z79.899 Other long term (current) drug therapy; Z98.1 Arthrodesis status; Z98.890 Other specified postprocedural states; Z90.710 Acquired absence of both cervix and uterus; Z90.49 Acquired absence of other specified parts of digestive tract
CPT/HCPCS: 0240U; 36415; 51701; 70450; 71045; 80053; 81001; 82248; 83605; 83735; 84100; 84484; 85025; 85610; 87040; 87086; 93005; 94640; 94664; 96360; 97162; 99285; 93010; 99222; 99232; 99239; 99284; A9270-GY; C9113; J0248; J0696; J1650; J3490; J7030; J7050; J7620-GY; J8540

== ENCOUNTER 2024-03-21 11:04 | Emergency (ER) | payer MEDICARE, OTHER, MEDICAID ==
[2024-03-21 11:33] LABS: BASOPHILS ABSOLUTE AUTO 0.04 K/uL (0.00-0.20); BASOPHILS PERCENT AUTO 0.3 % (0.0-1.0); EOSINOPHILS ABSOLUTE AUTO 0.08 K/uL (0.00-0.45); EOSINOPHILS PERCENT AUTO 0.7 % (0.0-6.0); HEMATOCRIT 38.6 % (37.0-47.0); HEMOGLOBIN 12.4 g/dL (12.0-16.0); IMMATURE GRAN ABSOLUTE AUTO 0.09 K/uL (0.00-0.05); IMMATURE GRAN PERCENT AUTO 0.8 % (0.0-0.4); LYMPHOCYTES ABSOLUTE AUTO 2.15 K/uL (1.00-4.80); MEAN CORPUSCULAR HEMOGLOBIN 27.9 pg (28.0-32.0); MEAN CORPUSCULAR HGB CONC 32.1 g/dL (32.0-36.0); MEAN CORPUSCULAR VOLUME 86.9 fL (83.0-99.0); MONOCYTES ABSOLUTE AUTO 0.82 K/uL (0.00-0.80); MONOCYTES PERCENT AUTO 6.9 % (0.0-8.0); NEUTROPHILS ABSOLUTE AUTO 8.79 K/uL (1.80-7.70); NEUTROPHILS PERCENT AUTO 73.3 % (41.0-71.0); PLATELET COUNT,PLT 198 K/uL (150-400); RED BLOOD CELL COUNT 4.44 M/uL (4.10-5.30); WHITE BLOOD CELL COUNT,WBC 11.97 K/uL (3.9-11.3)
[2024-03-21] MEDS: Sodium Chloride 0.9% 1,000 ML IV ONE (11:51)
[2024-03-21 12:12] LABS: A/G RATIO 0.7 (0.9-1.6); ALBUMIN 2.9 g/dL (3.4-5.0); BILIRUBIN TOTAL 0.6 mg/dL (0.2-1.0); CARBON DIOXIDE,CO2 31.9 mmol/L (21.0-32.0); CREATININE 0.6 mg/dL (0.6-1.0); EST CRCL DRUG DOSING (CG) 60.88 mL/min; POTASSIUM,K 4.1 mmol/L (3.5-5.1); PROTEIN TOTAL,TP 6.8 g/dL (6.4-8.2)
[2024-03-21 12:22] LABS: CORONAVIRUS COVID-19 NAA NEGATIVE (NEGATIVE); INFLUENZA A NAA NEGATIVE (NEGATIVE); INFLUENZA B NAA NEGATIVE (NEGATIVE); RESPIRATORY SYNCYTIAL VIR NAA NEGATIVE (NEGATIVE)
[2024-03-21] MEDS: Acetaminophen 500 MG Tab PO ONE (12:32)
[2024-03-21] MEDS: Diphtheria,Pertussis(Acell),Tetanus Vaccine 0.5 ML Syringe IM ONE (14:02)
[2024-03-21] MEDS: Clindamycin Phosphate in D5W 600 MG in Premix Bag 1 BAG IV ONE (14:02)
[2024-03-21] MEDS: Clindamycin Phosphate in D5W 300 MG in Premix Bag 1 BAG IV ONE (14:03)
[2024-03-21] MEDS: Ondansetron 4 MG/2 ML SDV IVPUSH ONE (15:15)
[2024-03-21] MEDS: Morphine 4 MG/ML Syringe IVPUSH ONE (15:15)
[2024-03-21 17:08] LABS: APPEARANCE,URINE CLEAR; BILIRUBIN,URINE NEGATIVE (NEGATIVE); COLOR,URINE YELLOW; GLUCOSE,URINE NEGATIVE (NEGATIVE); KETONES,URINE NEGATIVE (NEGATIVE); LEUKOCYTE ESTERASE,URINE NEGATIVE (NEGATIVE); NITRITE,URINE NEGATIVE (NEGATIVE); OCCULT BLOOD,URINE NEGATIVE (NEGATIVE); PROTEIN,URINE NEGATIVE (NEGATIVE); UROBILINOGEN,URINE 0.2 EU/dL (<2.0)
[2024-03-21 19:46] VITALS: BP 114/60; PULSE 78
== END 2024-03-21 17:10 ==
LOC: MW.ED 11:04
DX: S52.022B Displaced fracture of olecranon process without intraarticular extension of left ulna, initial encounter for open fracture type I or II (principal); S42.402B Unspecified fracture of lower end of left humerus, initial encounter for open fracture; I10 Essential (primary) hypertension; J44.9 Chronic obstructive pulmonary disease, unspecified; Z75.8 Other problems related to medical facilities and other health care; Z88.0 Allergy status to penicillin; Z88.5 Allergy status to narcotic agent; Z88.8 Allergy status to other drugs, medicaments and biological substances; Z79.899 Other long term (current) drug therapy; Z79.51 Long term (current) use of inhaled steroids; Z86.73 Personal history of transient ischemic attack (TIA), and cerebral infarction without residual deficits; Z23 Encounter for immunization; Z90.710 Acquired absence of both cervix and uterus; W19.XXXA Unspecified fall, initial encounter; Y92.009 Unspecified place in unspecified non-institutional (private) residence as the place of occurrence of the external cause
CPT/HCPCS: 0241U; 29105; 36415; 71045; 73060; 73080; 73110; 80053; 81003; 83735; 83880; 84484; 85025; 90471; 90715; 93005; 96361; 96365; 96375; 99285; A9270; J0736; J2270; J2405; J7030